=== PATIENT | female | born 1950 | race Caucasian/White ===

== ENCOUNTER → 2017-06-19 | Outpatient (CLI) | payer MEDICARE, OTHER ==
--- NOTE | 2017-06-19 17:28 | CONS ---
CONSULTATION Last name Adán first name Ana date2 evidencing patient DATE OF SERVICE: 06/19/2017 . 66-year-old lady has been evaluated in the sleep center for possible obstructive sleep apnea-hypopnea syndrome. HISTORY OF PRESENT ILLNESS/SLEEP WAKE EVALUATION: SLEEP SCHEDULE: Patient usual sleep schedule from 11 p.m. until 8:00 am. Sometimes difficulties to fall asleep for more than 30 minutes, has TV set in bedroom. DURING SLEEP: Sleeps usually on the side position with snoring which is loud. and she wakes up from sleep two times with nocturia, episodes of dry mouth, panic attack, restless legs. DURING THE DAY/SLEEP WAKE EVALUATION: [place] Sleepiness Scale today is 7. She worry about her sleep. PAST MEDICAL HISTORY: Positive for neck problems, hyperlipidemia, mitral valve prolapse, anxiety, diabetes. PAST SURGICAL HISTORY: Hysterectomy, oophorectomy, cholecystectomy, basal cell carcinoma removed from the skin of the face, left knee surgery for meniscus problems. SOCIAL HISTORY: Negative for smoking. Alcohol consumption very rarely. MEDICATIONS: Elavil, Zocor, atenolol, Ativan, metformin, baby aspirin, multivitamin, fish oil. REVIEW OF SYSTEMS: Some awakenings from sleep. FAMILY HISTORY: Hyperlipidemia, arthritis, snoring, cancer, diabetes, restless legs. PHYSICAL EXAM: lady without distress BP 119/73, HR 78, RR 16, height 63-1/2, weight 200.8, BMI 34.8. Neck 15 inches in circumference. Oxygen saturation on room air 97%. Oropharynx low position of soft palate. Neck Supple, no JVD. Thyroid is not palpable. LUNGS Clear to percussion and to auscultation. Good air exchange. No wheezing or rhonchi. HEART S1, S2 regular. No murmurs, gallops, or rubs. ABDOMEN : Obese. Soft and nontender. Bowel sounds are present. No organomegaly appreciated. EXTREMITIES No clubbing or cyanosis. GEL COAT SPRAYER Awake, alert, and oriented X3. Cranial nerves 2 to 7 intact. There is no fasciculation or atrophy. noted. No focal deficits observed. IMPRESSION: 1. Snoring, witnessed episodes of stopped breathing during sleep, low position of soft palate, obesity, obstructive sleep apnea-hypopnea syndrome. 2. Anxiety. 3. Neck pain. 4. Hyperlipidemia. 5. Mitral valve prolapse. 6. Diabetes mellitus. 7. Status post hysterectomy. 8. Status post oophorectomy. 9. Status post cholecystectomy. 10.Status post basal cell carcinoma removed from skin of the face. 11.Obesity, BMI 34.8. PLAN: 1. Polysomnography for evaluation of patient's breathing during sleep. 2. CPAP/BiPAP titration if sleep study confirms obstructive sleep apnea-hypopnea syndrome. 3. Preferable position during sleep on the side. 4. No driving if patient feels any sleepiness. Patient is aware of civil and criminal liability for unsafe driving. 5. I will see patient for follow up visit to explain results of testing and following plan. Thank you very much for referring the patient for consultation. Sincerely, Jeremy Alves MD, PhD, FAASM Diplomat of [employer] Line Maintenance of [facility] [place] MMELLENL / MARGARETN: [id number] /
== END ==
LOC: SLEEP 13:52
PROVIDERS: ATTEND Internal Medicine
DX: G47.33 Obstructive sleep apnea (adult) (pediatric) (principal); F41.9 Anxiety disorder, unspecified; E78.5 Hyperlipidemia, unspecified; I34.1 Nonrheumatic mitral (valve) prolapse; E11.9 Type 2 diabetes mellitus without complications; E66.9 Obesity, unspecified; Z68.34 Body mass index [BMI] 34.0-34.9, adult; Z90.710 Acquired absence of both cervix and uterus; Z90.722 Acquired absence of ovaries, bilateral; Z90.49 Acquired absence of other specified parts of digestive tract; C44.91 Basal cell carcinoma of skin, unspecified; Z98.890 Other specified postprocedural states; Z79.899 Other long term (current) drug therapy; Z79.84 Long term (current) use of oral hypoglycemic drugs; Z79.82 Long term (current) use of aspirin
CPT/HCPCS: 99211

== ENCOUNTER → 2017-10-31 | Outpatient (CLI) | payer MEDICARE, OTHER ==
--- NOTE | 2017-10-31 16:16 | PN ---
PROGRESS NOTE DATE OF SERVICE: 10/31/2017 This patient is a 67-year-old lady who has been followed in the sleep center for treatment of obstructive sleep apnea-hypopnea syndrome. Recently patient had a diagnostic sleep study and CPAP titration, and I discussed results of her sleep studies with the patient in detail. Subsequently she was started on treatment with CPAP and today she came for her first visit with CPAP. The patient is able to use her CPAP equipment every night basically for the whole night without significant problems. She sleeps better with the machine. She feels better during the day. No snoring. [place] Sleepiness Scale today is 1. I checked the patient's CPAP unit. CPAP pressure is 7 cm of water. Usage is 100% of the nights more than 4 hours. Average usage is 6.5 hours. Leak is acceptable at 10 L/minute. Apnea-hypopnea index is only 1.6, which is totally normal. MEDICATIONS: 1. Elavil. 2. Zocor. 3. Atenolol. 4. Ativan. 5. Metformin. 6. Aspirin. 7. Multivitamins. 8. Fish oil supplement. PHYSICAL EXAMINATION: GENERAL A pleasant lady without distress. VITAL SIGNS: BP 131/65, HR 60, RR 16, weight 194, temperature 97.5, oxygen saturation at room air 97%. HEENT: PERRLA, EOMI. Evaluation of oropharynx showed tongue protrudes midline; extremely low position of soft palate. NECK: Supple. No JVD. Thyroid is not palpable. LUNGS: Clear to percussion and to auscultation. Good air exchange. No wheezing or rhonchi. HEART: S1, S2 regular. No murmurs, gallops or rubs. ABDOMEN: Obese. EXTREMITIES : No clubbing or cyanosis. BUSINESS DEVELOPMENT AGENT: Awake, alert, and oriented X3. Cranial nerves 2 to 7 intact. There is no fasciculation or atrophy. noted. No focal deficits observed. IMPRESSION: 1. Obstructive sleep apnea-hypopnea syndrome in moderate range. Apnea-hypopnea index 25.8 with oxygen desaturation to 57.4%, under full control with CPAP at 7 cm of water. Patient demonstrated 100% compliance with treatment, benefitting from treatment. 2. Obesity. 3. History of anxiety. 4. History of asthma. 5. Hyperlipidemia. 6. History of mitral valve prolapse. 7. Diabetes mellitus. 8. Status post hysterectomy. 9. Status post cholecystectomy. 10.Status post basal cell carcinoma removed from the skin of the face. PLAN: 1. Continue treatment with CPAP every night for the whole night. 2. Losing weight. 3. Sleep hygiene with regular time in bed for at least 8 hours. 4. No driving if feeling any sleepiness. 5. Follow-up visit in 10 months, or earlier if patient has any problems. Thank you very much for allowing me to participate in the management of your patient. Sincerely, Jeremy Alves MD, PhD, FAASM Diplomat of [place] [employer]ties [place] Board of Internal Medicine Fudger of [facility] [place] MMODL / IJN: [id number] /
== END | disposition home or self-care (01) ==
LOC: SLEEP 13:05
PROVIDERS: ATTEND Internal Medicine
DX: G47.33 Obstructive sleep apnea (adult) (pediatric) (principal); E11.9 Type 2 diabetes mellitus without complications; E66.9 Obesity, unspecified; E78.5 Hyperlipidemia, unspecified; Z99.89 Dependence on other enabling machines and devices; Z79.899 Other long term (current) drug therapy; Z79.84 Long term (current) use of oral hypoglycemic drugs; Z79.82 Long term (current) use of aspirin; Z86.59 Personal history of other mental and behavioral disorders; Z87.09 Personal history of other diseases of the respiratory system; Z86.79 Personal history of other diseases of the circulatory system; Z90.710 Acquired absence of both cervix and uterus; Z90.49 Acquired absence of other specified parts of digestive tract; Z85.828 Personal history of other malignant neoplasm of skin

== ENCOUNTER → 2018-12-02 | Outpatient (CLI) | payer MEDICARE, OTHER ==
--- NOTE | 2018-12-02 17:35 | PN ---
PROGRESS NOTE A 68-year-old female patient with known history of obstructive sleep apnea. Coming for a yearly check. She was seeing Dr. Alves in the past and she wanted to see me in followup here in the sleep center. I did reviewed her sleep study. The patient has an AHI of 25.8, consistent with moderate severe obstructive sleep apnea. She has also a chronic problems with anxiety, asthma, hyperlipidemia, mitral valve prolapse, diabetes mellitus. She is obese and her weight has remained stable over the past 1 year. Based on the compliance data, the patient has been utilizing her CPAP on a regular basis. Her CPAP use is 100% of the time and she is using more than 4 hours every night without any interruption. Her current pressure is at 7. She is averaging more than 8 hours of CPAP use per night. Today AHI is down to 1.7. Leak is only 6 L per minute. She is utilizing the Mirage FX nose mask. No hypersomnia or sleepiness during the day. No recent weight gain, or any weight loss. She is currently weighing 211 pounds which is pretty much equivalent to her previous body weights. No hypersomnia or sleepiness during the day. [place] score is only at 1. REVIEW OF SYSTEMS: Fourteen-point review of system was done. Positive findings are mentioned above in the history of present illness. PHYSICAL EXAMINATION: VITAL SIGNS: BP 148/55, pulse 66, respirations 16, temperature 98.0, saturation 94% on room air. Weight is 211. Height is 5 feet 3 inches. [place] score is 1. BMI is 36.7. GENERAL APPEARANCE: Obese. Calm, comfortable. HEENT atraumatic normocephalic. NECK: Supple. No JVD. No goiter or neck masses. LUNGS: Clear to auscultation. HEART: Sounds are regular rate and rhythm. Normal S1, S2. No S3. No murmurs. ABDOMEN: Soft, nontender. No organomegaly. EXTREMITIES: No edema. No cyanosis or clubbing. SKIN: Negative for any wounds or ulceration. IMPRESSION: 1. Symptomatic obstructive sleep apnea. Moderate severe with an AHI of 25. The patient is currently on a CPAP pressure of 7 with excellent clinical response and compliance. 2. Obesity with a BMI of 36.7, and body weight of 211. 3. Chronic anxiety. 4. Chronic bronchial asthma. 5. Hyperlipidemia. 6. History of mitral valve prolapse. PLAN: 1. Encourage weight loss. 2. Continue CPAP therapy at the same level of pressure. 3. Implement good sleep hygiene measures. 4. On today's evaluation, I offered her the AirFit N20 small size nose mask which was a much more comfortable choice for this patient. A prescription will be sent and the patient will see me back in a year's time in followup. MONAE / MELINDA: [id number] /
== END ==
LOC: SLEEP 15:58
PROVIDERS: ATTEND Internal Medicine Critical Care Medicine
DX: G47.33 Obstructive sleep apnea (adult) (pediatric) (principal); E66.9 Obesity, unspecified; F41.9 Anxiety disorder, unspecified; E78.5 Hyperlipidemia, unspecified; J45.998 Other asthma; Z68.36 Body mass index [BMI] 36.0-36.9, adult; Z99.89 Dependence on other enabling machines and devices

== ENCOUNTER → 2022-01-03 | Outpatient (CLI) | payer MEDICARE, OTHER ==
--- NOTE | 2022-01-03 19:02 | CONS ---
CONSULTATION DATE OF SERVICE: 01/03/2022 This 71-year-old lady has been re-evaluated in Sleep Center for obstructive sleep apnea- hypopnea syndrome. HISTORY OF PRESENT ILLNESS/SLEEP-WAKE EVALUATION: The patient has a history of obstructive sleep apnea-hypopnea syndrome diagnosed in our institution. The last time I saw this patient was 4 years ago. Her sleep schedule is from about 10 p.m. until 6 a.m. No problems with falling asleep. With the CPAP unit, she does not snore and does not wake up from sleep. She usually sleeps on the side position and sleeps well. No abnormal movements during the night. No significant excessive daytime sleepiness. [place] Sleepiness Scale is only 2. She does not take any naps. I checked her CPAP unit. Pressure is 7 cm of water. Usage is 30/30 nights for more than 4 hours, average 8.6 hours per night. Leak is 11 L/minute. Apnea-hypopnea index is only 1.0, which is normal. PAST MEDICAL HISTORY: Positive for asthma, anxiety, hyperlipidemia, mitral valve prolapse, diabetes mellitus. PAST SURGICAL HISTORY: Hysterectomy, cholecystectomy, eyelid surgery for floppy eyelid syndrome. SOCIAL HISTORY: Negative for smoking or using alcohol. MEDICATIONS: 1. Zocor 20 mg once a day. 2. Glucophage 500 mg twice a day. 3. Tenormin 25 mg once a day. 4. Elavil 25 mg once a day. 5. Aspirin 81 mg once a day. 6. Calcium supplement. 7. Multivitamin supplements. FAMILY HISTORY: Positive for hypertension, heart problems. REVIEW OF SYSTEMS: Negative for chest pain, shortness of breath, headaches. No snoring. No fevers. No double vision. No recent chest pain. No shortness of breath. No abdominal pain. No bleeding episodes. No blood in the urine. No seizure episodes. PHYSICAL EXAMINATION: GENERAL: Pleasant lady without distress. VITAL SIGNS: BP 147/83, HR 72, RR 16, height 5 feet 3 inches, weight 211.8, body mass index 37.3, temperature 97.6, oxygen saturation at room air 96%. HEENT: PERRLA, EOMI, evaluation of oropharynx showed tongue protrudes midline. Extremely low position of soft palate; Mallampati IV. NECK: Supple, no JVD. Thyroid is not palpable. LUNGS: Clear to percussion and to auscultation. Good air exchange. No wheezing or rhonchi. HEART: S1, S2 regular. No murmurs, gallops, or rubs. ABDOMEN: Obese. Patient's weight increased from 194 pounds to 211 pounds. EXTREMITIES: No clubbing or cyanosis. MILK AND CREAM GRADER: Awake, alert, and oriented X3. Cranial nerves 2 to 7 intact. There is no fasciculation or atrophy. noted. No focal deficits observed. IMPRESSION: 1. Obstructive sleep apnea-hypopnea syndrome; previously apnea-hypopnea index was 25.8 with oxygen desaturation to 57.4%. The patient demonstrated 100% compliance with treatment, benefitting from treatment. Normal respiration on CPAP. Apnea-hypopnea index reading from the machine 1.0. No significant leak; 11 L/minute. Average usage 8.6 hours per night. 2. Obesity. Patient's weight increased. 3. History of anxiety. 4. History of asthma. 5. Hyperlipidemia. 6. History of mitral valve prolapse. 7. Diabetes mellitus. 8. Status post hysterectomy. 9. Status post cholecystectomy. 10.Status post basal cell carcinoma removed from the skin of the face. 11.Status post surgical treatment of floppy eyelid syndrome. PLAN: 1. Prescription for all necessary CPAP supplies. 2. Patient should change air filter immediately. 3. Continue to use CPAP equipment every night for the whole night. 4. Losing weight. 5. No driving if feeling any sleepiness. 6. Follow-up visit in 6 months or earlier if patient has any problems. Thank you very much for referring this patient for consultation. Sincerely, Jeremy Alves MD, PhD, FAASM Diplomat of [employer] Specialties Sleep Medicine Board of [place] Board of Internal Medicine Data Control Clerk of [facility] [place] MMODL / IJN: [id number] /
== END ==
LOC: SLEEP 15:07
PROVIDERS: ATTEND Internal Medicine
DX: G47.33 Obstructive sleep apnea (adult) (pediatric) (principal); G47.36 Sleep related hypoventilation in conditions classified elsewhere; E66.9 Obesity, unspecified; E78.5 Hyperlipidemia, unspecified; E11.9 Type 2 diabetes mellitus without complications; Z90.49 Acquired absence of other specified parts of digestive tract; F41.9 Anxiety disorder, unspecified; Z86.79 Personal history of other diseases of the circulatory system; J45.909 Unspecified asthma, uncomplicated; Z85.828 Personal history of other malignant neoplasm of skin; Z98.890 Other specified postprocedural states; Z79.82 Long term (current) use of aspirin; Z79.84 Long term (current) use of oral hypoglycemic drugs; Z79.899 Other long term (current) drug therapy
CPT/HCPCS: 99211

== ENCOUNTER → 2022-11-21 | Outpatient (CLI) | payer MEDICARE, OTHER ==
--- NOTE | 2022-11-21 13:43 | P.PN ---
Subjective DATE: 11/21/2022 FOLLOW UP VISIT. Patient with obstructive sleep apnea hypopnea syndrome return to sleep center for follow-up visit. Information from previous visit have been reviewed. Patient is using PAP equipment every night for the whole night, getting PAP supplies in time. The patient does not have significant problems with the mask, PAP unit and humidification. [place] sleepiness scale is 2, which is totally normal. I checked information from PAP unit. PAP unit pressure 7 cm H2O. Usage is 100 % for more then 4 hours, average 8.9 hours per night. Leak is 14 l/m, which is in acceptable range. Apnea Hypopnea Index is 0.9, which is normal. MEDICATIONS:1. LL 50 mg once a day 2. Glucophage 250 mg twice a day 3. Tenormin 25 mg once a day 4. Aspirin 81 mg once a day 5. Simvastatin 20 mg once a day During physical exam: GENERAL: A pleasant patient without any distress. VITAL SIGNS: BP 136/84, HR 79, RR 16 , weight 206, temperature 98.3, oxygen saturation at room air 99 % . HEENT: PERRLA, EOMI.low position of soft palate, Mallapati 4 . NECK: Supple. No JVD. LUNGS: Clear to percussion and to auscultation. Good air exchange. No wheezing or rhonchi. HEART: S1, S2 regular. ABDOMEN: Soft and nontender. Slightly obese EXTREMITIES: No clubbing or cyanosis. SSRS REPORT DEVELOPER: Awake, alert, and oriented x3. No focal deficit. Impressions: 1. Obstructive sleep apnea-hypopnea syndrome. Patient demonstrated great compliance with treatment, benefiting from treatment. 2. Mild obesity body mass index 36.2, patient lost 5 pounds since previous visit. 3. Diabetes mellitus. 4. History of asthma. 5. Hyperlipidemia. 6. History of mitral valve prolapse. 7. History of anxiety. 8. Status post surgical treatment of floppy eyelid syndrome. 9. Status post basal cell carcinoma on the face treated by surgery. 10. Status post cholecystectomy. 11.[]. 12.[]. Plan: 1. Continue using PAP equipment every night for the whole night. 2. To change air filter at least 1-2 times per month. 3. PAP unit should stay lower then position of the head. 4. Advised patient to remove all remaining water from humidifier canister daily and make it dry after each usage. Refill canister with fresh distilled water before each usage. 5. Sleep hygiene with regular time in bed for at least 8 hours. 6. Precautions related to driving. No driving if feel any sleepiness. 7. I will maintain prescription for PAP supplies including mask, tube, filters. 8. Follow up visit in 6 months or earlier if patient has any problems. 9. Watching and continue losing weight. Thank you very much for allowing me to participate in the management of your patient. Jeremy Alves MD, PhD, FAASM. Diplomat of [place] Board [employer], Sleep Medicine Board by [place] [employer] Internal Medicine Manager Delivery of [facility] [place]
== END ==
LOC: SLEEP 13:02
PROVIDERS: ATTEND Internal Medicine
DX: G47.33 Obstructive sleep apnea (adult) (pediatric) (principal); E11.9 Type 2 diabetes mellitus without complications; E66.9 Obesity, unspecified; E78.5 Hyperlipidemia, unspecified; I34.1 Nonrheumatic mitral (valve) prolapse; J45.909 Unspecified asthma, uncomplicated; Z68.36 Body mass index [BMI] 36.0-36.9, adult; Z79.84 Long term (current) use of oral hypoglycemic drugs; Z79.899 Other long term (current) drug therapy; Z85.828 Personal history of other malignant neoplasm of skin; Z90.49 Acquired absence of other specified parts of digestive tract; Z98.890 Other specified postprocedural states; Z99.89 Dependence on other enabling machines and devices; Z79.82 Long term (current) use of aspirin
CPT/HCPCS: 99212

== ENCOUNTER → 2023-06-19 | Outpatient (CLI) | payer MEDICARE, OTHER ==
--- NOTE | 2023-06-19 17:49 | P.PN ---
Subjective DATE: 06/19/2023 FOLLOW UP VISIT. Patient with obstructive sleep apnea hypopnea syndrome return to sleep center for follow-up visit. Information from previous visit have been reviewed. Patient is using PAP equipment every night for the whole night, getting PAP supplies in time. The patient does not have significant problems with the mask, PAP unit and humidification. [place] sleepiness scale is, which is perfect. I checked information from PAP unit and discussed it with patient in details. PAP unit pressure 7 cm H2O. Usage is 100 % for more then 4 hours, average 8.8 hours per night. Leak is 16 l/m, which is in acceptable range. Apnea Hypopnea Index is 0.7, which is normal. MEDICATIONS:1. Tenormin 25 mg once a day 2. Elavil 25 mg 3. Aspirin 81 mg once a day 4. Zocor 20 mg once a day During physical exam: GENERAL: A pleasant patient without any distress. VITAL SIGNS: BP 121/82, HR 77, RR 16 , weight 200.8, temperature 98.0, oxygen saturation at room air 97 % . HEENT: PERRLA, EOMI.low position of soft palate, Mallapati 4 . NECK: Supple. No JVD. LUNGS: Clear to percussion and to auscultation. Good air exchange. No wheezing or rhonchi. HEART: S1, S2 regular. ABDOMEN: Soft and nontender.[] EXTREMITIES: No clubbing or cyanosis. PROFESSIONAL NURSING TUTOR: Awake, alert, and oriented x3. No focal deficit. Impressions: 1. Obstructive sleep apnea-hypopnea syndrome. Patient demonstrated great compliance with treatment, benefiting from treatment. 2. Mild obesity, patient lost 6 pounds since previous visit. 3. History of diabetes mellitus. 4. History of asthma. 5. Hyperlipidemia. 6. Mitral valve prolapse. 7. History of anxiety. 8. Status post cholecystectomy. 9. Status post surgical treatment of basal cell carcinoma on the face. 10. Status post surgical treatment of floppy eyelid syndrome. Plan: 1. Continue using PAP equipment every night for the whole night. 2. To change air filter at least 1-2 times per month. 3. PAP unit should stay lower then position of the head. 4. Advised patient to remove all remaining water from humidifier canister daily and make it dry after each usage. Refill canister with fresh distilled water before each usage. 5. Sleep hygiene with regular time in bed for at least 8 hours. 6. Precautions related to driving. No driving if feel any sleepiness. 7. I will maintain prescription for PAP supplies including mask, tube, filters. 8. Watching and losing weight. 9. Follow up visit in 6 months or earlier if patient has any problems. Thank you very much for allowing me to participate in the management of your patient. Jeremy Alves MD, PhD, FAASM. Diplomat of [place] Board of Sleep Medicine, Sleep Medicine Board by [place] [employer] Internal Medicine Car Seat Maker of [facility] [place]
== END ==
LOC: 3 N SLEEP 15:24
PROVIDERS: ATTEND Internal Medicine
DX: G47.33 Obstructive sleep apnea (adult) (pediatric) (principal); E66.9 Obesity, unspecified; E11.9 Type 2 diabetes mellitus without complications; E78.5 Hyperlipidemia, unspecified; F41.9 Anxiety disorder, unspecified; I34.1 Nonrheumatic mitral (valve) prolapse; J45.909 Unspecified asthma, uncomplicated; Z85.828 Personal history of other malignant neoplasm of skin; Z90.49 Acquired absence of other specified parts of digestive tract; Z98.890 Other specified postprocedural states; Z99.89 Dependence on other enabling machines and devices
CPT/HCPCS: 99212

== ENCOUNTER → 2024-07-29 | Outpatient (CLI) | payer MEDICARE, OTHER ==
[2024-07-29 14:09] VITALS: BP 136/52; PULSE 61; RESP 16; TEMP 98.2
--- NOTE | 2024-07-29 14:50 | P.PROGSL ---
Subjective DATE: 07/29/2024 FOLLOW UP VISIT. Patient with obstructive sleep apnea hypopnea syndrome return to sleep center for follow-up visit. Information from previous visit have been reviewed. Patient is using PAP equipment every night for the whole night, getting PAP supplies in time. Patient developed problems with the breathing while using his CPAP equipment mostly related to difficulties to exhale. [place] sleepiness scale is 1. I checked information from PAP unit. PAP unit pressure 7 cm H2O. Usage is 100% for more then 4 hours, average 9.2 hours per night. Leak is 13 l/m, which is in acceptable range. Apnea Hypopnea Index is 1.5, which is normal. CPAP unit is noisy, motor life expectancy exceeded. MEDICATIONS have been reviewed, please see below, additionally ativan. During physical exam: GENERAL: A pleasant patient without any distress. VITAL SIGNS: Please see below, weight is 186 lbs. HEENT: PERRLA, EOMI.low position of soft palate, Mallapati 4 . NECK: Supple. No JVD. LUNGS: Clear to percussion and to auscultation. Good air exchange. No wheezing or rhonchi. HEART: S1, S2 regular. ABDOMEN: Soft and nontender.[] EXTREMITIES: No clubbing or cyanosis. RADIOTELEGRAPHER: Awake, alert, and oriented x3. No focal deficit. Impressions: 1. Obstructive sleep apnea-hypopnea syndrome. Patient demonstrated great compliance with treatment, benefiting from treatment. CPAP unit is noisy, motor life expectancy exceeded. 2. Obesity, BMI 32.9, patient lost 14 pounds since previous visit. 3. History of diabetes mellitus. 4. History of asthma. 5. Hyperlipidemia. 6. Mitral valve prolapse. 7. History of anxiety. 8. Status post cholecystectomy. 9. Status post surgical treatment for floppy eyelid syndrome. 10. Status post surgical treatment for basal cell carcinoma of the face. Prescription for replacement of CPAP unit. Plan: 1. Continue using PAP equipment every night for the whole night. 2. Sleep hygiene with regular time in bed for at least 7.5-8 hours 3. PAP unit should stay lower then position of the head. 4. Advised patient to remove all remaining water from humidifier canister daily and make it dry after each usage. Refill canister with fresh distilled water before each usage. 5. Watching weight. 6. Precautions related to driving. No driving if feel any sleepiness. 7. I will maintain prescription for PAP supplies including mask, tube, filters. 8. Follow up visit in 1-3 months after patient will get new CPAP unit. Thank you very much for allowing me to participate in the management of your pa tiemaggy. Jeremy Alves MD, PhD, FAASM. Diplomat of [place] Board [employer] Sleep Medicine, Sleep Medicine Board by [place] Board of Internal Medicine Nba Player of [facility] [place] Objective - Vital Signs Vital Signs: Vital Signs Temp 98.2 F 07/29/24 14:08 Pulse 61 07/29/24 14:08 Resp 16 07/29/24 14:08 BP 136/52 07/29/24 14:08 Pulse Ox 96 07/29/24 14:08 FiO2 Intake & Output 07/28/24 07/29/24 07/29/24 18:59 06:59 18:59 Weight 84.368 kg Home Medications: Home Medications Medication Instructions Recorded Confirmed Type Amitriptyline HCl [Elavil] 25 mg PO HS 07/12/15 07/12/15 History Aspirin 81 mg PO DAILY 07/12/15 07/29/24 History Ibuprofen [Motrin] 600 mg PO Q6HR PRN #20 tab 07/12/15 Rx Simvastatin [Zocor] 20 mg PO HS 07/12/15 07/29/24 History atenoloL [Tenormin] 25 mg PO DAILY 07/12/15 07/29/24 History Calcium Carbonate [Calcium] 600 mg PO HS 07/29/24 07/29/24 History Citalopram Hydrobromide [CeleXA] 20 mg PO HS 07/29/24 07/29/24 History metFORMIN HCL 500 mg PO BID 07/29/24 07/29/24 History
== END ==
LOC: 3 N SLEEP 13:29
PROVIDERS: ATTEND Internal Medicine
DX: G47.33 Obstructive sleep apnea (adult) (pediatric) (principal); E66.9 Obesity, unspecified; Z68.32 Body mass index [BMI] 32.0-32.9, adult; E11.9 Type 2 diabetes mellitus without complications; I34.1 Nonrheumatic mitral (valve) prolapse; F41.9 Anxiety disorder, unspecified; Z98.890 Other specified postprocedural states; Z99.89 Dependence on other enabling machines and devices; Z87.09 Personal history of other diseases of the respiratory system
CPT/HCPCS: 99212

== ENCOUNTER → 2024-10-08 | Outpatient (CLI) | payer MEDICARE, OTHER ==
[2024-10-08 11:16] VITALS: BP 124/64; PULSE 63; RESP 16; TEMP 98.3
--- NOTE | 2024-10-08 11:44 | P.PROGSL ---
Subjective DATE: 10/08/2024 FOLLOW UP VISIT. Patient with obstructive sleep apnea hypopnea syndrome return to sleep center for follow-up visit. Information from previous visit have been reviewed. This is first visit after patient started to use new CPAP unit AirSense 11. Patient is using PAP equipment every night for the whole night, getting PAP supplies in time. Patient developed feeling of more gas in the stomach after using CPAP and feels pressure is too high. Garrison sleepiness scale is 1, which is perfect. I checked information from PAP unit. PAP unit pressure AutoPap 6-7, average 7 cm H2O. Usage is 100% for more then 4 hours, average 9.25 hours per night. Leak is 17.9 l/m, which is in acceptable range. Apnea Hypopnea Index is 1.1, which is normal. MEDICATIONS have been reviewed, please see below. During physical exam: GENERAL: A pleasant patient without any distress. VITAL SIGNS: Please see below, weight is 189.2 lbs. HEENT: PERRLA, EOMI.low position of soft palate, Mallapati 4 . NECK: Supple. No JVD. LUNGS: Clear to percussion and to auscultation. Good air exchange. No wheezing or rhonchi. HEART: S1, S2 regular. ABDOMEN: Soft and nontender.[] EXTREMITIES: No clubbing or cyanosis. GAME TESTER: Awake, alert, and oriented x3. No focal deficit. Impressions: 1. Obstructive sleep apnea-hypopnea syndrome. Patient demonstrated great compliance with treatment, benefiting from treatment. 2. Mild obesity, patient increased weight on 3 pounds comparing with previous visit. 3. History of diabetes mellitus. 4. History of asthma. 5. Hyperlipidemia. 6. Mitral valve prolapse. 7. History of anxiety. 8. Status post surgical treatment for basal cell carcinoma of the face. 9. Status post surgical treatment for floppy eyelid syndrome. 10. Status post cholecystectomy. I changed regimen of AutoPap to CPAP with a pressure of 5 cm of water and I put on exhalation release pressure. Plan: 1. Continue using PAP equipment every night for the whole night. 2. Sleep hygiene with regular time in bed for at least 7.5-8 hours 3. PAP unit should stay lower then position of the head. 4. Advised patient to remove all remaining water from humidifier canister daily and make it dry after each usage. Refill canister with fresh distilled water before each usage. 5. Watching weight. 6. Precautions related to driving. No driving if feel any sleepiness. 7. I will maintain prescription for PAP supplies including mask, tube, filters. 8. Follow up visit in 8 months or earlier if patient has any problems. Thank you very much for allowing me to participate in the management of your patient. Jeremy Alves MD, PhD, FAASM. Diplomat of [employer], Sleep Medicine Board by [employer] [facility] [place] Objective - Vital Signs Vital Signs: Vital Signs Temp 98.3 F 10/08/24 11:12 Pulse 63 10/08/24 11:12 Resp 16 10/08/24 11:12 BP 124/64 10/08/24 11:12 Pulse Ox 96 10/08/24 11:12 FiO2 Intake & Output 10/07/24 10/08/24 10/08/24 18:59 06:59 18:59 Weight 85.786 kg Home Medications: Home Medications Medication Instructions Recorded Confirmed Type Amitriptyline HCl [Elavil] 25 mg PO HS 07/12/15 07/12/15 History Aspirin 81 mg PO DAILY 07/12/15 07/29/24 History Ibuprofen [Motrin] 600 mg PO Q6HR PRN #20 tab 07/12/15 Rx Simvastatin [Zocor] 20 mg PO HS 07/12/15 07/29/24 History atenoloL [Tenormin] 25 mg PO DAILY 07/12/15 07/29/24 History Calcium Carbonate [Calcium] 600 mg PO HS 07/29/24 07/29/24 History Citalopram Hydrobromide [CeleXA] 20 mg PO HS 07/29/24 07/29/24 History metFORMIN HCL 500 mg PO BID 07/29/24 07/29/24 History
== END ==
LOC: 3 N SLEEP 10:45
PROVIDERS: ATTEND Internal Medicine
DX: G47.33 Obstructive sleep apnea (adult) (pediatric) (principal); E78.5 Hyperlipidemia, unspecified; E66.9 Obesity, unspecified; Z86.39 Personal history of other endocrine, nutritional and metabolic disease; Z82.5 Family history of asthma and other chronic lower respiratory diseases; I34.1 Nonrheumatic mitral (valve) prolapse; Z86.59 Personal history of other mental and behavioral disorders; Z90.49 Acquired absence of other specified parts of digestive tract; Z98.890 Other specified postprocedural states
CPT/HCPCS: 99212